=== PATIENT | male | born 1930 | race Caucasian/White ===

== ENCOUNTER 2016-09-29 18:10 | Inpatient (IN) | payer MEDICARE, OTHER ==
--- NOTE | ~2016-09-29 | CT57 ---
[facility] A Service of [facility] RADIOLOGY TEXT RESULTS PATIENT: RUDY LEE LOCATION: [facility] [id number] : 30 UNIT #: [id number] AGE: [address]: Radha Hill MD SEX: M ORDER DR: [id number] [facility] [address] [facility] [facility]. [place], [place] [address] [id number] MR#: [id number] Acc #: [id number] NAME: RUDY LEE : 1930 SEX: M STUDY DATE/TIME: 09/30/2016 15:07 UNIT: [facility] ROOM: [facility] STUDY DESCRIPTION: CT Chest Wo Cont Attending Physician: Domenica Beck M.D. Referring Physician: Jose Carpenter M.D. Ordering Physician: Domenica Beck M.D. Primary Care Physician: Jose Carpenter M.D. MEDICAL IMAGING REPORT This report is preliminary unless electronic signature is present EXAM CT chest 09/30/2016 HISTORY Cardiac hypertension, diabetes, respiratory, decreased kidney function, weakness, nausea, started Sunday, short of air. TECHNIQUE CT of the chest performed without administration of intravenous contrast. This CT exam was performed with one or more of the following radiation dose reduction techniques: automatic exposure control, adjustment of mA and/or kV according to patient size, and iterative reconstruction. COMPARISON 10/28/2015 FINDINGS Thyroid unremarkable. Cardiac pacemaker unchanged. No axillary, mediastinal or hilar adenopathy. Stable, moderate cardiac enlargement. Status post median sternotomy and CABG. Extensive coronary mitral annular and aortic valvular calcification. Moderate to large bilateral pleural effusions. Visualized portions of liver notable for tiny right hepatic lobe cysts, unchanged from prior study. The patient appears to be status post cholecystectomy. There is no biliary obstruction suggested. Spleen, pancreas, adrenal glands, upper renal poles unremarkable. No upper abdominal adenopathy. Distal esophagus, stomach, small bowel and colon show no acute abnormality. Pulmonary parenchyma shows underlying emphysema. Mild bronchiectasis and bronchial wall thickening likely reflecting components of chronic bronchitis and COPD. The lungs show bibasilar patchy and band-like atelectasis, more pronounced on left than right. Some component of basilar pneumonitis on the left could be considered. The bronchial wall thickening is probably slightly more pronounced on the lower lung zones than on the prior study, which may reflect a component of acute bronchitis superimposed on chronic STS. [facility] A Service of [facility] RADIOLOGY TEXT RESULTS PATIENT: RUDY LEE LOCATION: [place] [address] : 30 UNIT #: [id number] AGE: [address]: Radha Hill MD SEX: M ORDER DR: bronchitis. A 6 mm noncalcified subpleural nodule posterior left upper lobe is unchanged. Continued 6 month follow up recommended, unless there are outside studies demonstrating full 2 year stability. No new nodules are seen. There is dilatation of the ascending aorta measuring approximately 4.8 cm in diameter, unchanged from prior examination. The descending thoracic aorta is normal in caliber. Visualized abdominal aorta normal in caliber. Extensive atherosclerotic vascular calcifications in the systemic arterial tree. Bony structures show degenerative changes in the spine. Prior surgical intervention anterior left chest wall. Appearance is stable. No acute appearing bony abnormality. IMPRESSION 1. Moderate to large bilateral pleural effusions. Subjacent atelectasis in the lower lung zones. There are some patchy densities at the lower lung zones more pronounced on left than right, which are probably atelectatic as well. Components of mild pneumonitis/developing pneumonia could be considered. Follow up to resolution recommended. 2. Underlying emphysema and mild bronchiectasis. No mucus plugging. Generalized bronchial wall thickening, more pronounced in the lower lung zones on today's examination than previously, probably reflecting a component of acute bronchitis, superimposed on chronic bronchial wall thickening. 3. Stable moderate cardiac enlargement. 4. Extensive atherosclerotic arterial calcifications and coronary and systemic circulation. 5. Stable 4.8 cm ascending aortic aneurysm. 6. No acute abnormality seen in visualized upper abdomen. See remainder of incidental findings in body of report above. Dictated by... Maged Brandt M.D. THIS IS AN ELECTRONICALLY VERIFIED REPORT Maged Brandt M.D. at 10/03/2016 6:09 PM MARY/maryana TD: 10/01/2016 12:14 JOB #: [id number] MEDICAL IMAGING REPORT Page 1 of 1 COPY
--- NOTE | ~2016-09-29 | A ---
[facility] Nutrition Therapy DATE: 10/02/16 Patient: RUDY MOOREREST Physician: BARBARA Address: [address] Room/Bed: [address] [place] [address], Zip: [place] [address] Admit Date: 09/29/16 Date of : 30 Height: 6 1 Weight: 120 54.43 NUTRITIONAL ASSESSMENT: REASON: PT SEEN FOR LOW BMI + ONE NUTRITION RISK PT RE: POOR PO INTAKE PT IS 85 Y.O. MALE ADMITTED FOR PNA, ABD PAIN, CHF PMH: CAD, DEMENTIA, HTN, HLD, T2DM, CHF, COLON CA S/P RESECTION, COPD, RESP FAILURE, CKD, HYPOTHYROIDISM Anthropometrics: 6'1", WT: 119# ( 54 KG), BMI: 15.7, 65%IBW Labs: GLU: 159, BUN: 57, CREAT: 2.2, ALB: 3.3, AST: 97, ALT: 118 Meds: PROTONIX, IV LEVAQUIN, LIPITOR, COUMADIN, SYNTHROID, ZOFRAN, NACL I/O & Bowel function: 1510/605 Skin Integrity: DRY SKIN NOTED ALL OVER BODY; BRUISES NOTED ALL OVER BODY Estimated Nutrition Needs: INCREASED NUTRIENT NEEDS 2' PT UNDERWEIGHT, WEIGHT LOSS NOTED, CURRENT CONDITION, POOR PO INTAKE AND APPETITE Assessment: CHART REVIEWED AND EVENTS NOTED. PT SEEN FOR LOW BMI + POOR PO INTAKE. PT SLEEPY/LETHARGIC AT TIME OF VISIT. RD SPOKE TO AND FAMILY AT BEDSIDE REPORTING PT TO HAVE POOR PO INTAKE 2' DECREASED APPETITE PAST SEVERAL WEEKS. FAMILY NOTES UBW IS ~200#, GRADUALLY LOST WEIGHT OVER PAST [address] ENCOURAGED ADEQUATE KCAL AND PROTEIN INTAKE, FAMILY AGREED THAT PUDDING AND ICE CREAM WOULD BE BENEFICIAL FOR PT. FAMILY REPORTED NO DIET QUESTIONS AT THIS TIME. RD TO FOLLOW. OF NOTE, HOSPICE HAS BEEN CONSULTED TODAY. Dx: INADEQUATE PROTEIN-ENERGY INTAKE R/T DECREASED APPETITE, ADVANCED AGE, CURRENT CONDITION AEB LOW BMI OF 15.7, 65%IBW IBW, FAMILY REPORT ABOVE. Intervention: 1. CC DIET 2. 6 SMALL MEALS 3. ENSURE PUDDING BID 4. MAGIC CUP BID Monitoring, Evaluation and Goals: 1. PO INTAKE; PROVIDE AND CONSUME ADEQUATE NUTRITION W/NO C/O N/V/D (PO>50%) 2. WEIGHTS; PROMOTE GRADUAL WEIGHT GAIN TOWARDS HEALTHY BMI (19.0-25.0) 3. LABS; WNL 4. GI; PROMOTE REGULAR GI FUNCTION MONITOR: [facility] Therapy DATE: 10/02/16 Patient: RUDY LEE Physician: BARBARA Address: [address] [place] [address] Room/Bed: [address] [place] [address], Zip: [place] [address] Admit Date: 09/29/16 Date of : 30 Height: 6 1 Weight: 120 54.43 -PO INTAKE/APPETITE/DIET CHANGE -SUPPLEMENT INTAKE -WEIGHTS -PLANS FOR HOME CARE Recommendations: 1. RECOMMEND TO CHANGE CURRENT DIET ORDER TO REGULAR TO BETTER FACILITATE PO INTAKE 2. ADD 6 SMALL MEALS TO CURRENT DIET ORDER 3. ORDER BUTTER[place]OTCH ENSURE PUDDING BID 4. ORDER MAGIC CUP BID 5. APPRECIATE FAMILY AND STAFF TO ENCOURAGE ADEQUATE KCAL AND PROTEIN INTAKE WELL ASSIST W/ORDERING MEALS RD WILL F/U PER PROTOCOL PT IS MOD/SEVERELY COMPROMISED Respectfully, CHIDI MURILLO MS, RD, LD Food and Nutritional Services [facility] cc: client file
--- NOTE | ~2016-09-29 | DS ---
Unit #: [id number] #: [id number] Patient: RUDY REEDER [id number] [address] [address] [id number] I MR#: [id number] NAME: RUDY REEDRE ROOM: 467 Age: 85 Sex: M Admission Date: 09/29/2016 : 1930 Discharge Date: 10/03/2016 Attending Physician: Radha Hill M.D. Referring Physician: Jose Carpenter M.D. Primary Care Physician: Jose Carpenter M.D. DISCHARGE SUMMARY PRIMARY CARE PROVIDER Dr. Carpenter. PRINCIPAL DIAGNOSES 1. Acute on chronic systolic congestive heart failure with an ejection fraction of 20%. 2. Acute on chronic diastolic congestive heart failure. 3. 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 4. Left lower lobe pneumonia. 5. 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 6. Underweight. 7. Severe protein malnutrition. 8. Coronary artery disease. 9. Paroxysmal atrial fibrillation, status post permanent pacemaker placement, maintained on anticoagulation, now being discontinued and rate control. 10. Anxiety. 11. History of hypertension. 12. Severe mitral regurgitation. 13. Moderate aortic regurgitation. 14. Severe tricuspid regurgitation. 15. Hyperlipidemia. 16. Ascending aortic aneurysm. 17. Hypothyroidism. CONSULTANTS Dr. Stacy, Cardiology. PROCEDURES 1. Two-dimensional echocardiogram on 10/01/2016 with severe mitral regurgitation, moderate aortic stenosis, severe tricuspid regurgitation, mild pulmonary hypertension with right ventricular systolic pressure of 42 mmHg, ejection fraction of 20%, grade 3 diastolic dysfunction noted. 2. 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 3. CT of the chest without contrast on 09/30/2016 with moderate to large bilateral pleural effusions, emphysema, and mild bronchiectasis noted. Moderate cardiac enlargement, extensive atherosclerotic arterial calcifications noted, 4.8 cm ascending aortic aneurysm. 4. Chest x-ray on 09/29/2016 with chronic lung disease and atelectasis. Unit #: [id number] #: [id number] Patient: RUDY REEDER CLINICAL HISTORY AND HOSPITAL COURSE Mr. Reeder is an 85-year-old male, brought to the emergency department by family due to poor oral intake and increasing shortness of breath. Please refer to H and P for further details. In the emergency department, the patient underwent chest x-ray concerning for questionable pneumonia. His creatinine was also elevated at 1.8 which is near to his baseline. He was afebrile. The patient was subsequently admitted. The patient was started on empiric antibiotics given concerns for pneumonia. However, he has a history of significant congestive heart failure and for this reason, Dr. Stacy, was consulted. He was also placed on increasing doses of diuretic due to associated CHF exacerbation. Two-dimensional echocardiogram was done, revealing biventricular failure. He was also maintained on his Coumadin, which remained therapeutic throughout hospitalization. The patient has had significant physical and mental decline over the last several months. He is significantly cachectic and has poor oral intake. Screening workup for malignancy was done including CT scans, but these were unremarkable. I discussed the physical and mental findings with the patient's and son. His decline appears to be secondary to significant biventricular failure in combination with advanced dementia. After discussion regarding goals of care, hospice was consulted and the patient will be discharged home under the care of hospice. We are going to discontinue anticoagulation due to his poor oral intake and decrease his diuretics which I anticipate in very near future it will be discontinued as well due to poor oral intake. I will also decrease the dose of some medications. The patient is having significant agitation at night secondary to his dementia, and it is not controlled with Xanax or Remeron. I am going to add some Risperdal at home to help with these symptoms. DISCHARGE CONDITION Stable. DISCHARGE STATUS Discharged to home under the care of hospice. DISCHARGE MEDICATIONS Remeron 50 mg at bedtime, Xanax 0.5 mg b.i.d. p.r.n. for anxiety, Coreg 6.25 mg half a tablet p.o. b.i.d., Bumex 1 mg p.o. daily this should be held if patient is having poor oral intake or appears dehydrated or has poor urine output, aspirin 81 mg daily, levothyroxine 50 mcg p.o. daily, Risperdal 0.5 mg 1 to 2 tablets p.o. q.h.s. Please note, we are discontinuing Coumadin, atorvastatin, Zoloft, potassium chloride. DISCHARGE INSTRUCTIONS The patient was instructed he can follow regular diet if he so wishes without any restrictions. He can increase activity as tolerated, but I highly suspect he will no longer be getting out of bed. Followup under the care of hospice with hospice MD following the patient. Again, I anticipate some of his medications such as his Coreg and his Bumex will be stopped in the very near future. Time spent on discharge 36 minutes. Unit #: [id number] #: [id number] Patient: RUDY REEDER Dictated by... Elise Donnelly/michi TD: 10/03/2016 09:19 JOB #: [id number] DISCHARGE SUMMARY Page 1 of 1 X Radha Hill MD X DISCHARGE SUMMARY
--- NOTE | ~2016-09-29 | CO ---
Unit #: [id number] #: [id number] Patient: RUDY LEE [id number] [address] [place], [place] [address] [id number] I MR#: [id number] NAME: RUDY LEE ROOM: 467 Age: 85 Sex: M Admission Date: 09/29/2016 : 1930 Attending Physician: Radha Hill M.D. Primary Care Physician: Jose Carpenter M.D. Consultation Date: 09/30/2016 CONSULTATION REPORT REASON FOR CONSULTATION Congestive heart failure. HISTORY OF PRESENT ILLNESS This is a pleasant 85-year-old elderly gentleman, who normally follows in the office with Dr. Stacy. He has a past medical history of ischemic cardiomyopathy last known ejection fraction of 35%, paroxysmal atrial fibrillation on chronic anticoagulation with Coumadin, known coronary artery disease status post CABG in 1981 with reoperation in 1991. The patient also had a stent to the saphenous vein graft to the RCA in 1999, hypertension, anxiety, diabetes mellitus, dyslipidemia, dementia, hypothyroidism. The patient does have a history of dementia, and therefore, most of the information was gained from the prior records as well as his son who is currently at bedside and the chart. Son reports the patient had been doing relatively well until about when he noticed he went to visit him, his breathing was a little more labored. Apparently, this worsened over the next several days and then ultimately requiring a visit to the emergency room secondary to increasing shortness of breath, weakness, and decreased appetite. In the emergency room, the patient had a chest x-ray, which showed underlying chronic lung disease with concern for superimposed airspace disease in the right lower lung and possibly some worsening airspace disease at the left base. No change in postoperative cardiac enlargement or pacer. He has been diagnosed with pneumonia and has been started on antibiotic therapy. The son reports the patient has been afebrile, denies any fever or chills. He also denies any complaints of chest pain, palpitations, or syncope. At present, he is resting in bed. He is in no acute distress. His son is at bedside. Thus far, he has had one point of care troponin which has been negative. Currently, he has an EKG which is pending. At present, he is currently paced underlying rhythm of atrial fibrillation. Again, we were asked to see secondary to history of systolic congestive heart failure and medical management for that reason. PAST MEDICAL HISTORY 1. Known coronary artery disease with CABG in 1981, reoperation in 1991 as well as a stent to the saphenous vein graft to the RCA in 1999. 2. Cardiac catheterization in 2007 showed a normal left main, saphenous vein graft to the RCA stent was patent. There was some distal stenosis of 30%. PDA fills both left circumflex marginal. 3. LAD and BHATIA grafts were patent, SVG to the diagonal 50%, ramus first Unit #: [id number] #: [id number] Patient: RUDY LEE diagonal 99% at the origin, left circ 100% saphenous vein graft to the OM was occluded with retrograde collaterals. He was treated with medical management at that time. 4. History of paroxysmal atrial fibrillation, on anticoagulation with Coumadin. 5. Permanent pacemaker placement. 6. History of chronic kidney disease. 7. Hypertension. 8. Anxiety. 9. Systolic heart failure, ejection fraction per last echo was 35%. Date is unknown. 10. History of moderate MR, AR, and mild aortic stenosis. 11. Diabetes mellitus with peripheral neuropathy. 12. Hyperlipidemia. 13. Dementia. 14. History of colon cancer post resection. 15. hypothyroidism. PAST SURGICAL HISTORY 1. Coronary artery bypass graft surgery in 1981 with reoperation CABG in 1991. 2. Cardiac catheterization in 1999 see above. 3. Colon resection secondary to colon cancer. 4. Cataract extraction. 5. History of surgery for detached retina left-side. 6. Open cholecystectomy. ALLERGIES No known drug allergies. SOCIAL HISTORY The patient lives in a private residence with his . He is a reformed smoker, quit 30+ years ago. Denies illicit drugs or alcohol. He uses a walker at home for assist. FAMILY HISTORY Coronary artery disease in his mother. HOME MEDICATIONS Coumadin 2.5 mg p.o. daily, Xanax 0.25 mg p.o. daily, carvedilol 6.25 mg p.o. b.i.d., Bumex 2 mg p.o. daily, atorvastatin 20 mg p.o. daily, aspirin 81 mg daily, Synthroid 0.05 mg p.o. daily, K-Dur 20 mEq p.o. daily, Remeron 50 mg p.o. q.h.s. REVIEW OF SYSTEMS Difficult to obtain secondary to the patient's dementia. Per the son, he has had some weight loss, nausea, and weakness as well as what was stated above in the HPI. No other pertinent information was given. PHYSICAL EXAMINATION GENERAL: This is an elderly cachectic-appearing male, lying in bed, currently in no acute distress. He is awake and alert, but appears pleasantly confused. His son is at bedside and available to answer questions. VITAL SIGNS: Temperature 97.8, respiratory rate 17 to 20, pulse 60s, blood pressure is 109/55. BMI 15. HEENT: Head is atraumatic and normocephalic. Pupils are equal and round. Pharynx is benign. Mucous membranes are moist. Unit #: [id number] #: [id number] Patient: RUDY LEE NECK: Supple. No thyromegaly. Positive for JVD. No carotid bruits. LUNGS: Clear to auscultation anteriorly and decreased in the bases. HEART: S1 and S2. Grade 2/6 systolic murmur best auscultated at the apex. ABDOMEN: Soft, nontender, nondistended. Bowel sounds are present. EXTREMITIES: Pulses are palpable. No clubbing, cyanosis, or edema. DIAGNOSTIC STUDIES LABORATORY RESULTS: Sodium 138, potassium 4.3, chloride 102, CO2 of 23, BUN 51, creatinine 2.4, glucose 130. Hemoglobin 13.1, hematocrit 41.0, WBCs 8.1, platelet count 160. AST 133, ALT 118, ALP 82. PT/INR 21.7 and 2.0. Urinalysis was negative. Troponin has been negative x1. IMAGING STUDIES: Chest x-ray shows right lower lobe infiltrate. CARDIOVASCULAR STUDIES: Currently has EKG which is pending. ASSESSMENT 1. Acute on chronic systolic congestive heart failure, last known ejection fraction was 35%. 2. Pneumonia. 3. Paroxysmal atrial fibrillation, on chronic anticoagulation with Coumadin. 4. Elevated transaminases most likely secondary to hepatic congestion. 5. Ischemic cardiomyopathy with an ejection fraction of 35%. 6. Known coronary artery disease, status post coronary artery bypass grafting with reoperation coronary artery bypass grafting as well as stent to the saphenous of the right coronary artery in 1999. 7. History of hypertension. 8. Hyperlipidemia. 9. Diabetes mellitus. 10. Dementia. 11. Hypothyroidism. PLAN This is a pleasant patient admitted with shortness of breath, weakness, decreased appetite. He has a known history of ischemic cardiomyopathy, unknown systolic congestive heart failure, last known EF was 35%. At this time, it does appear the patient has clinical evidence of fluid overload consistent with congestive heart failure. He does have jugular vein distention on examination. Dr. Coles has reviewed his x-ray and feels this is consistent with CHF. The patient is currently being treated also for pneumonia. He denies any complaints of chest pain. He currently has an EKG which is pending. He has had one troponin which has been negative thus far. He is currently therapeutic on his Coumadin dosing. We will add BNP to the blood in the lab. Await EKG, trend serial enzymes. Call if troponin is greater than 0.5. Also repeat 2D echocardiogram to reassess valvular disease as well as LV systolic function. We will check CBC, CMP, and Mag level in the a.m. The patient will also be given one time dose of IV Bumex today in addition to his oral dosing regimen. We will follow up tomorrow and see how he does with this. He will be continued on carvedilol, however, his blood pressure is a little low at this time and his dose has been decreased accordingly and parameters placed. Most likely his liver enzymes are elevated secondary to hepatic congestion. Further recommendations to follow. I have discussed code status with the patient's son, he states he will discuss with his and let us know. At this time, he is unclear. Also continue his Coumadin as ordered and check daily pro-time and INR. Unit #: [id number] #: [id number] Patient: RUDY LEE Thank you for asking us to see this pleasant elderly gentleman. We appreciate the consult. Dictated by... Augustina Degroot A.P.R.N. for Fortino Coles M.D. LMW/modl TD: 10/02/2016 02:05 JOB #: [id number] CONSULTATION REPORT Page 1 of 1 X Augustina Degroot APRN CONSULTATION REPORT
--- NOTE | ~2016-09-29 | EKG ---
PATIENT: RUDY LEE UNIT #: [id number] Ventricular Rate: 69 BPM Atrial Rate: 326 BPM QRS Duration: 190 ms Q-T Interval: 504 ms QTC Calculation(Bezet): 540 ms Calculated R Advance: -66 degrees Calculated T Advance: 117 degrees Diagnosis Line: Ventricular-paced rhythm Diagnosis Line: Abnormal ECG Diagnosis Line: When compared with ECG of 29-SEP-2016 17:41, Diagnosis Line: (unconfirmed) Diagnosis Line: Vent. rate has decreased BY 3 BPM Diagnosis Line: Confirmed by ELEUTERIO MOORE MD ([id number]) on 10/03/2016 Diagnosis Line: 10:52:02 PM INTERPRETING MD: OSCAR ROSE
--- NOTE | ~2016-09-29 | CT4 ---
[facility] A Service of [facility] & [facility] RADIOLOGY TEXT RESULTS PATIENT: RUDY LEE LOCATION: [facility] [id number] : 30 UNIT #: [id number] AGE: [address]: Radha Hill MD SEX: M ORDER DR: [id number] [facility] [address] [facility]. [place], [place] [address] [id number] I MR#: [id number] #: [id number] NAME: RUDY LEE : 1930 SEX: M STUDY DATE/TIME: 10/01/2016 11:21 UNIT: [facility] ROOM: [facility] STUDY DESCRIPTION: CT Abd and Pelv Wo Cont Attending Physician: Domenica Beck M.D. Referring Physician: Jose Carpenter M.D. Ordering Physician: Domenica Beck M.D. Primary Care Physician: Jose Carpenter M.D. MEDICAL IMAGING REPORT This report is preliminary unless electronic signature is present EXAM CT abdomen and pelvis INDICATIONS Generalized abdominal pain and weight loss TECHNIQUE CT of the abdomen and pelvis without contrast. Coronal and sagittal reconstructions were obtained. This CT exam was performed with one or more of the following radiation dose reduction techniques: automatic exposure control, adjustment of mA and/or kV according to patient size, and iterative reconstruction. COMPARISON CT abdomen and pelvis 07/09/[address] chest dated 10/28/2015. FINDINGS Please refer to the separate dictated report on the chest from 09/30/2016, for details on the chest. Noncontrast evaluation of the solid abdominal organs are within normal limits. The gallbladder is surgically absent. There is benign cysts in the lower pole left kidney and a 2 mm nonobstructing left renal calculus. The bowel is not dilated. There is a small volume of ascites. The appendix is normal. 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 No pelvic mass. No enlarged pelvic or inguinal lymph nodes. 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 No femoral head collapse. The there is generalized osteopenia. Degenerative changes of the lumbar spine. STS. [facility] A Service of [facility] & [facility] RADIOLOGY TEXT RESULTS PATIENT: RUDY LEE LOCATION: [facility] [id number] : 30 UNIT #: [id number] AGE: [address]: Radha Hill MD SEX: M ORDER DR: IMPRESSION 1. Small volume of ascites. 2. 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 3. 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 4. Avascular necrosis of the femoral heads. Dictated by... Josh Beltran M.D. THIS IS AN ELECTRONICALLY VERIFIED REPORT Josh Beltran M.D. at 10/02/2016 2:12 PM Eliza/maryana TD: 10/01/2016 18:59 JOB #: [id number] MEDICAL IMAGING REPORT Page 1 of 1 COPY
--- NOTE | ~2016-09-29 | HP ---
Unit #: [id number] #: [id number] Patient: RUDY LEE [id number] [address] [place], [place] [address] [id number] I MR#: [id number] NAME: RUDY LEE ROOM: [id number] Age: 85 Sex: M Admission Date: 09/29/2016 : 1930 Attending Physician: Asya Galeana M.D. Referring Physician: Jose Carpenter M.D. Primary Care Physician: Jose Carpenter M.D. HISTORY AND PHYSICAL CHIEF COMPLAINT Decreased appetite, decreased p.o. intake, weakness, shortness of breath. DISCUSSION This is an 85-year-old gentleman who has a past medical history of ischemic cardiomyopathy, ejection fraction 35%, paroxysmal afib, coronary artery disease, previous CABG, hypertension, anxiety, dyslipidemia and diabetes on diet, dementia, hypothyroid. Patient lives at home with his . is available at bedside. She brought him to the ER with chief complaint of decreased appetite and poor p.o. intake, cannot walk for a couple of days, shortness of breath. On workup in the ER he was found to have right lower lobe pneumonia and also been having abnormal LFTs and he is being admitted for pneumonia. He has been also complaining of nausea but denied chest pain, denies fever, chills or other complaint. PAST MEDICAL HISTORY 1. History of coronary artery disease, status post CABG in 1981, redo CABG in 1991. Ejection fraction on last echo 35%. History of moderate MR, AR and mild aortic stenosis. 2. History of percutaneous coronary angioplasty and stent. 3. History of paroxysmal afib. 4. Status post permanent pacemaker insertion. 5. History of chronic kidney disease. 6. Hypertension. 7. Anxiety. 8. Diet controlled diabetes with peripheral neuropathy. 9. Hyperlipidemia. 10. Dementia. 11. History of colon cancer, status post resection. 12. History of cataract extraction. 13. History of surgery for detached retina on the left side. 14. History of open cholecystectomy. 15. History of benign prostatic hypertrophy. 16. Hypothyroid. ALLERGIES No known drug allergies. SOCIAL HISTORY Patient lives with , stopped smoking 35 years ago, does not drink alcohol, usually uses a walker. FAMILY HISTORY Coronary artery disease in the family. Unit #: [id number] #: [id number] Patient: RUDY LEE HOME MEDICATION Medication from home is followin. Coumadin 2.5 mg daily. 2. Xanax 0.25 mg daily. 3. Coreg 6.25 mg b.i.d. 4. Bumex 2 mg b.i.d. 5. Atorvastatin 20 mg daily. 6. Aspirin 81 mg daily. 7. Synthroid 50 mcg daily. 8. K-Dur 20 mEq daily. 9. Remeron 15 mg p.o. q.h.s. REVIEW OF SYSTEMS All review of systems negative except as in history of present illness. PHYSICAL EXAMINATION GENERAL: On examination elderly man lying in the bed comfortably currently not in any distress. On general examination he is alert, awake, not in any distress. VITAL SIGNS: His current vitals are following: His blood pressure 114/71, heart rate 71, respiratory rate is 15. HEENT: On HEENT examination pupils equally react to light and accommodation. Pharynx benign. Extraocular muscles intact. NECK: Supple. No JVD. No thyromegaly. LUNGS: Poor air entry bilaterally with few basilar crackles. HEART: S1, S2. A 2/6 systolic murmur positive. ABDOMEN: Soft, nontender and nondistended. Bowel sounds positive. EXTREMITIES: Inspection normal. No cyanosis. No clubbing. No edema. NEUROLOGIC: Unable to do neuro exam secondary to the patient's cooperation. His cranial nerves are intact. DIAGNOSTIC STUDIES LABORATORY: His laboratory workup is following: Troponin less than 0.05. Chemistry: Sodium 135, potassium 4.4, chloride 99, CO2 24, glucose 166, BUN 48, creatinine is 1.8, AST 47, ALT 45, total bilirubin is 2.3. INR is 2. White count 8, hemoglobin 13, hematocrit 41, platelet is 191. IMAGING: Chest x-ray shows right lower lobe infiltrate. ASSESSMENT AND PLAN 1. Pneumonia with right lower lobe infiltrate: Will start the patient on IV Rocephin and Zithromax. 2. Abnormal liver function tests: Repeat CMP in the morning. He has a history of cholecystectomy in the past. 3. History of failure to thrive with weight loss, anorexia. 4. History of ischemic cardiomyopathy with ejection fraction 35%. 5. History of paroxysmal atrial fibrillation, on Coumadin. INR is within normal range. 6. Coronary artery disease with previous coronary artery bypass graft and stent in the past. 7. Hypertension. 8. History of anxiety. 9. Dyslipidemia. 10. Diabetes. Currently his diabetes is controlled on the diet. Will place the patient on sliding-scale while in the hospital. 11. History of dementia. 12. Hypothyroid. Unit #: [id number] #: [id number] Patient: RUDY LEE 13. DVT prophylaxis: He is on Coumadin. Dictated by Elise Clark/sarkis TD: 09/29/2016 23:10 JOB #: [id number] HISTORY AND PHYSICAL Page 1 of 1 X X HISTORY AND PHYSICAL
--- NOTE | ~2016-09-29 | CR72 ---
[facility] A Service of [facility] & [facility] RADIOLOGY TEXT RESULTS PATIENT: RUDY LEE LOCATION: [facility] [id number] : 30 UNIT #: [id number] AGE: [address]: Domenica Beck MD SEX: M ORDER DR: [id number] [facility] [address] [place], [place] [address] [id number] I MR#: [id number] Acc #: [id number] NAME: RUDY LEE : 1930 SEX: M STUDY DATE/TIME: 09/29/2016 17:38 UNIT: [facility] ROOM: [id number] STUDY DESCRIPTION: CR Chest Single View Portable Attending Physician: Asya Galeana M.D. Referring Physician: Jose Carpenter M.D. Ordering Physician: Reji Garcia M.D. Primary Care Physician: Jose Carpenter M.D. MEDICAL IMAGING REPORT This report is preliminary unless electronic signature is present EXAM Chest x-ray portable HISTORY Tachypnea, weakness, loss of appetite, short of air since Sunday. COMMENT Single frontal portable view of the chest timed 17:38 09/29/2016 compared to a film from 04/06/2016. [id number] postoperative cardiac enlargement with a left-sided pacer/defibrillator unchanged. There is patchy airspace disease at the right base new from prior and increased markings at the left base also on comparison to prior. I believe there is underlying chronic lung disease with distortion of parenchymal architecture. No pleural effusion. No pneumothorax. IMPRESSION 1. Underlying chronic lung disease with concern for superimposed airspace disease right lower lung and possibly some worsening airspace disease at the left base. No change in the postoperative cardiac enlargement or pacer. Clinical correlation and follow up suggested. Dictated by... Willow Lopez M.D. THIS IS AN ELECTRONICALLY VERIFIED REPORT Willow Lopez M.D. at 09/30/2016 8:50 PM KESHAV/prince TD: 09/30/2016 02:52 JOB #: [id number] [facility] A Service of [facility] & [facility] RADIOLOGY TEXT RESULTS PATIENT: RUDY LEE LOCATION: [facility] [id number] : 30 UNIT #: [id number] AGE: [address]: Domenica Beck MD SEX: M ORDER DR: MEDICAL IMAGING REPORT Page 1 of 1 COPY
--- NOTE | ~2016-09-29 | EKG ---
PATIENT: RUDY LEE UNIT #: [id number] Ventricular Rate: 72 BPM Atrial Rate: 72 BPM QRS Duration: 120 ms Q-T Interval: 426 ms QTC Calculation(Bezet): 466 ms Calculated R Tupman: -17 degrees Calculated T Tupman: -141 degrees Diagnosis Line: Atrial fibrillation Diagnosis Line: Electronic ventricular pacemaker Diagnosis Line: Non-specific intra-ventricular conduction delay Diagnosis Line: ST and T wave abnormality, consider inferior Diagnosis Line: ischemia Diagnosis Line: ST and T wave abnormality, consider anterolateral Diagnosis Line: ischemia Diagnosis Line: Abnormal ECG Diagnosis Line: When compared with ECG of 05-APR-2016 16:08, Diagnosis Line: Vent. rate has increased BY 3 BPM Diagnosis Line: Confirmed by ELEUTERIO MOORE MD ([id number]) on 10/03/2016 Diagnosis Line: 10:30:12 PM INTERPRETING MD: OSCAR ROSE
[2016-09-29 18:01] LABS: BASOPHIL% 0.3 % (0-2.5); HEMOGLOBIN 13.2 gm/dL (13.0-16.0); LYMPHOCYTE# 1.6 X10e3 (1.0-3.5); LYMPHOCYTE% 19.5 % (17.0-45.0); MEAN CORPUSCULAR HEMOGLOBIN 29.3 PG (28-34); MEAN CORPUSCULAR HGB CONC 32.2 g/dL (30-36); MEAN PLATELET VOLUME 9.4 FL (6.5-11.5); MONOCYTE# 0.7 X10e3 (0-1.0); MONOCYTE% 8.7 % (3.0-12.0); NEUTROPHIL# 5.7 X10e3 (1.5-7.1); NEUTROPHIL% 71.5 % (40-75); PLATELET COUNT 191 X10e3 (140-420); RED CELL DISTRIBUTION WIDTH 15.9 % (11.0-15.5)
[2016-09-29 18:04] LABS: DIFF IND NO
[~2016-09-29 18:10] MED LIST: ACTOS PO; ALDACTONE PO; ALPRAZOLAM PO; AMIODARONE HCL100 MG PO; ASPIRIN PO; ASPIRIN81 M2 PO; BACITRAYCIN PLU28 GM TP; BACTROBAN22 GM TP; BUMETANIDE1 MG PO; BUMETANIDE2 M1 PO; BUMEX1 MG PO; CORDARONE200 M1 PO; COREG PO; COREG12.5 MG PO; COREG6.25 MG PO; COUMADIN PO; COUMADIN2.5 MG PO; COUMADIN3 MG PO; COUMADIN5 MG PO; DIOVAN PO; HYDROCODON-ACE1 EAC7 PO; IMDUR PO; JANUVIA PO; LASIX PO; LIPITOR PO; LIPITOR20 MG PO; PLAVIX PO; SYNTHROID PO
[2016-09-29 18:28] LABS: PROTHROMBIN TIME (PATIENT) 21.7 SECONDS (9.6-11.5)
[2016-09-29 18:34] LABS: ALBUMIN SERUM 3.8 g/dL (3.5-5.0); BILIRUBIN, DIRECT 0.6 mg/dL (0.0-0.2); BILIRUBIN,INDIRECT 1.7 mg/dL (0.0-0.9); BILIRUBIN,TOTAL 2.3 mg/dL (0.2-2.0); BUN/CREATININE RATIO 25.26; CALCIUM SERUM 9.3 mg/dL (8.4-10.2); CREATININE SERUM 1.9 mg/dL (0.6-1.4); GLOM FILT RATE Estimated 31.4 mL/min (>60); POTASSIUM 4.4 mmol/L (3.5-5.1); PROTEIN TOTAL SERUM 6.4 g/dL (6.0-8.3)
[2016-09-29] MEDS ORDERED: CARVEDILOL6.25 MG PO (18:41)
[2016-09-29] MEDS ORDERED: COUMADIN2.5 MG PO (18:41)
[2016-09-29] MEDS ORDERED: ALPRAZOLAM PO (18:41)
[2016-09-29] MEDS ORDERED: BUMEX2 MG PO (18:42)
[2016-09-29] MEDS ORDERED: SYNTHROID0.05 MG PO (18:42)
[2016-09-29] MEDS ORDERED: BAYER CHEWABLE81 MG PO (18:42)
[2016-09-29] MEDS ORDERED: ATORVASTATIN CA20 MG PO (18:42)
[2016-09-29] MEDS ORDERED: K-DUR20 ME1 PO (18:43)
[2016-09-29] MEDS ORDERED: REMERON15 MG PO (18:43)
[2016-09-29 18:49] LABS: POC - CKMB 1.5 ng/mL (0.0-7.9); POC - TROPONIN <0.05 ng/mL (<=0.05)
[2016-09-29 20:28] LABS: INFLUENZA A NEG (NEG); INFLUENZA B NEG (NEG)
[2016-09-29 20:43] LABS: URINE SOURCE CLEAN CATCH
[2016-09-29 20:48] LABS: URINE APPEARANCE CLEAR; URINE BILIRUBIN NEG (NEG); URINE BLOOD NEG (NEG); URINE COLOR YELLOW; URINE GLUCOSE NEG (NEG); URINE KETONE NEG (NEG); URINE LEUKOCYTE ESTERASE NEG (NEG); URINE NITRATE NEG (NEG); URINE PROTEIN NEG (NEG); URINE SPECIFIC GRAVITY 1.013 (1.003-1.035)
[2016-09-29 21:02] LABS: CULTURE INDICATED? NO
[2016-09-30 04:43] LABS: BASOPHIL% 0.3 % (0-2.5); HEMOGLOBIN 13.1 gm/dL (13.0-16.0); LYMPHOCYTE# 1.6 X10e3 (1.0-3.5); LYMPHOCYTE% 19.4 % (17.0-45.0); MEAN CELL VOLUME 91.6 FL (83-96); MEAN CORPUSCULAR HEMOGLOBIN 29.3 PG (28-34); MEAN PLATELET VOLUME 9.3 FL (6.5-11.5); MONOCYTE# 0.8 X10e3 (0-1.0); MONOCYTE% 9.3 % (3.0-12.0); NEUTROPHIL# 5.8 X10e3 (1.5-7.1); PLATELET COUNT 160 X10e3 (140-420); RED BLOOD COUNT 4.47 X10e (3.90-5.60); WHITE BLOOD COUNT 8.1 X10e3 (4.0-10.5)
[2016-09-30 04:47] LABS: DIFF IND NO
[2016-09-30 05:23] LABS: ALBUMIN SERUM 3.6 g/dL (3.5-5.0); BILIRUBIN,TOTAL 1.8 mg/dL (0.2-2.0); BUN/CREATININE RATIO 21.25; CALCIUM SERUM 8.9 mg/dL (8.4-10.2); CREATININE SERUM 2.4 mg/dL (0.6-1.4); GLOM FILT RATE Estimated 23.7 mL/min (>60); POTASSIUM 4.6 mmol/L (3.5-5.1); PROTEIN TOTAL SERUM 6.3 g/dL (6.0-8.3)
[2016-09-30 15:33] LABS: %MB 3.5 % (0.0-4.0); MB 2.9 ng/ml
[2016-09-30 21:27] LABS: %MB 3.4 % (0.0-4.0); MB 2.7 ng/ml
[2016-10-01 03:28] LABS: BASOPHIL% 0.3 % (0-2.5); EOSINOPHIL% 0.2 % (0.0-7.0); HEMATOCRIT 36.9 % (38.0-50.0); HEMOGLOBIN 11.9 gm/dL (13.0-16.0); LYMPHOCYTE# 1.1 X10e3 (1.0-3.5); LYMPHOCYTE% 16.6 % (17.0-45.0); MEAN CELL VOLUME 90.2 FL (83-96); MEAN CORPUSCULAR HEMOGLOBIN 29.2 PG (28-34); MEAN CORPUSCULAR HGB CONC 32.4 g/dL (30-36); MEAN PLATELET VOLUME 9.4 FL (6.5-11.5); MONOCYTE# 0.6 X10e3 (0-1.0); MONOCYTE% 9.1 % (3.0-12.0); NEUTROPHIL% 73.8 % (40-75); PLATELET COUNT 144 X10e3 (140-420); RED BLOOD COUNT 4.09 X10e (3.90-5.60); RED CELL DISTRIBUTION WIDTH 15.7 % (11.0-15.5); WHITE BLOOD COUNT 6.8 X10e3 (4.0-10.5)
[2016-10-01 03:38] LABS: INR 2.2; PROTHROMBIN TIME (PATIENT) 24.2 SECONDS (9.6-11.5)
[2016-10-01 03:45] LABS: ALBUMIN SERUM 3.3 g/dL (3.5-5.0); BILIRUBIN,TOTAL 1.2 mg/dL (0.2-2.0); BUN/CREATININE RATIO 26.52; CALCIUM SERUM 8.3 mg/dL (8.4-10.2); CREATININE SERUM 2.3 mg/dL (0.6-1.4); DIFF IND NO; MAGNESIUM 2.4 mg/dL (1.6-3.0); POTASSIUM 3.9 mmol/L (3.5-5.1); PROTEIN TOTAL SERUM 5.9 g/dL (6.0-8.3)
[2016-10-02 04:12] LABS: BASOPHIL% 0.6 % (0-2.5); DIFF IND NO; EOSINOPHIL# 0.2 X10e3 (0-0.7); EOSINOPHIL% 2.4 % (0.0-7.0); HEMATOCRIT 39.6 % (38.0-50.0); HEMOGLOBIN 12.8 gm/dL (13.0-16.0); LYMPHOCYTE# 1.8 X10e3 (1.0-3.5); LYMPHOCYTE% 25.3 % (17.0-45.0); MEAN CELL VOLUME 90.4 FL (83-96); MEAN CORPUSCULAR HEMOGLOBIN 29.2 PG (28-34); MEAN CORPUSCULAR HGB CONC 32.3 g/dL (30-36); MEAN PLATELET VOLUME 9.4 FL (6.5-11.5); MONOCYTE# 0.7 X10e3 (0-1.0); MONOCYTE% 10.2 % (3.0-12.0); NEUTROPHIL# 4.3 X10e3 (1.5-7.1); NEUTROPHIL% 61.5 % (40-75); PLATELET COUNT 164 X10e3 (140-420); RED BLOOD COUNT 4.38 X10e (3.90-5.60); RED CELL DISTRIBUTION WIDTH 15.8 % (11.0-15.5); WHITE BLOOD COUNT 6.9 X10e3 (4.0-10.5)
[2016-10-02 04:27] LABS: INR 2.2
[2016-10-02 04:38] LABS: BUN/CREATININE RATIO 25.9; CALCIUM SERUM 8.7 mg/dL (8.4-10.2); CREATININE SERUM 2.2 mg/dL (0.6-1.4); GLOM FILT RATE Estimated 26.3 mL/min (>60); MAGNESIUM 2.4 mg/dL (1.6-3.0); POTASSIUM 3.6 mmol/L (3.5-5.1)
[2016-10-03 04:07] LABS: INR 2.8; PROTHROMBIN TIME (PATIENT) 30.1 SECONDS (9.6-11.5)
[2016-10-03 04:15] LABS: BUN/CREATININE RATIO 26.31; CALCIUM SERUM 8.7 mg/dL (8.4-10.2); CREATININE SERUM 1.9 mg/dL (0.6-1.4); GLOM FILT RATE Estimated 31.4 mL/min (>60); POTASSIUM 4.1 mmol/L (3.5-5.1)
[2016-10-03] MEDS ORDERED: COREG3.125 MG PO (13:00)
[2016-10-03] MEDS ORDERED: RISPERDAL0.5 MG PO (13:08)
== END 2016-10-03 19:54 | DRG 291 ==
LOC: CED 18:10 → CEDOF 19:15 → C4C 09-30 23:40
PROVIDERS: Emergency Medicine; Family Medicine; Internal Medicine; Nurse Practitioner
PROC: B246YZZ Ultrasonography of Right and Left Heart using Other Contrast (ICD-10-PCS; principal; 2016-10-01)
DX: I50.43 Acute on chronic combined systolic (congestive) and diastolic (congestive) heart failure (principal); J18.9 Pneumonia, unspecified organism; E43 Unspecified severe protein-calorie malnutrition; N18.4 Chronic kidney disease, stage 4 (severe); N17.9 Acute kidney failure, unspecified; E11.22 Type 2 diabetes mellitus with diabetic chronic kidney disease; F03.90 Unspecified dementia, unspecified severity, without behavioral disturbance, psychotic disturbance, mood disturbance, and anxiety; F01.51 Vascular dementia, unspecified severity, with behavioral disturbance; E11.42 Type 2 diabetes mellitus with diabetic polyneuropathy; I13.0 Hypertensive heart and chronic kidney disease with heart failure and stage 1 through stage 4 chronic kidney disease, or unspecified chronic kidney disease; I48.0 Paroxysmal atrial fibrillation; I25.5 Ischemic cardiomyopathy; I25.10 Atherosclerotic heart disease of native coronary artery without angina pectoris; Z95.1 Presence of aortocoronary bypass graft; F41.9 Anxiety disorder, unspecified; E03.9 Hypothyroidism, unspecified; E78.5 Hyperlipidemia, unspecified; Z98.49 Cataract extraction status, unspecified eye; Z90.49 Acquired absence of other specified parts of digestive tract; Z82.49 Family history of ischemic heart disease and other diseases of the circulatory system; Z79.82 Long term (current) use of aspirin; Z79.01 Long term (current) use of anticoagulants; I34.0 Nonrheumatic mitral (valve) insufficiency; I35.1 Nonrheumatic aortic (valve) insufficiency; I71.4 Abdominal aortic aneurysm, without rupture; Z85.038 Personal history of other malignant neoplasm of large intestine; Z95.5 Presence of coronary angioplasty implant and graft
CPT/HCPCS: 36415; 71010; 71250; 74176; 80048; 80053; 80076; 81003; 82378; 82550; 82553; 82607; 82947; 83735; 83880; 84443; 84484; 85025; 85610; 86301; 87040; 87804; 92526; 92610; 93005; 93306; 94640; 94760; 96374; 97116; 97162; 97167; 97530; 99285; C9113; G8978-GP; G8979-GP; G8987-GO; G8988-GO; G8996-GN; G8997-GN; G8998-GN; J0456; J0696; J2405